=== PATIENT | female | born 1990 | race Caucasian/White ===

== ENCOUNTER 2019-04-01 01:18 | Inpatient (IN) | payer BC ==
[~2019-04-01 01:18] MED LIST: Bupivacaine 0.25% 10 ML SDV ONE
[2019-04-01] MEDS ORDERED: Nalbuphine 10 MG/1 ML Vial IVPUSH PRN (01:30)
[2019-04-01] MEDS ORDERED: Sodium Chloride 0.9% 10 ML Syringe FLUSH PRN (01:30)
[2019-04-01] MEDS ORDERED: Oxytocin/Lactated Ringers 10 UNIT/1,000 ML BAG IV SCH ×2 (01:30→17:30)
[2019-04-01] MEDS: Lactated Ringers 1,000 ML IV SCH ×2 (08:54→11:07)
[2019-04-01] MEDS ORDERED: fentaNYL 100 MCG/2 ML SDV EPIDUR PRN (09:16)
[2019-04-01] MEDS ORDERED: diphenhydrAMINE 50 MG/ML SDV IVPUSH PRN (09:16)
[2019-04-01] MEDS ORDERED: fentaNYL/Bupivacaine/NS 2 MCG-0.125% 250 ML EPIDUR PRN (09:16)
[2019-04-01] MEDS ORDERED: ePHEDrine 50 MG/ML SDV IVPUSH PRN (09:16)
--- NOTE | 2019-04-01 09:29 | PCM.PREANE ---
Preanesthetic Assessment - Anesthesia/Transfusion/Family Hx Anesthesia History: Prior Anesthesia Without Reaction Family History of Anesthesia Reaction: Other (see below) (Mom has a hard time waking up from general anesthesia.) Transfusion History: No Prior Transfusion(s) - Review of Systems General: No Symptoms Pulmonary: No Symptoms Cardiovascular: No Symptoms Gastrointestinal: No Symptoms Neurological: No Symptoms Other: Reports: None - Physical Assessment Vital Signs: 99.4F 127/75 82 16 98% Height: 1.63 m Weight: 69.088 kg ASA Class: 2 Mental Status: Alert & Oriented x3 Airway Class: Mallampati = 1 Dentition: Reports: Normal Dentition Thyro-Mental Finger Breadths: 3 Mouth Opening Finger Breadths: 3 ROM/Head Extension: Full Lungs: Clear to Auscultation, Normal Respiratory Effort Cardiovascular: Regular Rate, Regular Rhythm - Lab Values: Laboratory Last Values WBC 9.84 K/mm3 (3.98-10.04) 04/01/19 01:40 RBC 3.79 M/mm3 (3.98-5.22) L 04/01/19 01:40 Hgb 13.5 gm/dl (11.2-15.7) 04/01/19 01:40 Hct 37.5 % (34.1-44.9) 04/01/19 01:40 MCV 98.9 fl (79.4-94.8) H 04/01/19 01:40 MCH 35.6 pg (25.6-32.2) H 04/01/19 01:40 MCHC 36.0 g/dl (32.2-35.5) H 04/01/19 01:40 RDW Std Deviation 43.5 fL (36.4-46.3) 04/01/19 01:40 Plt Count 204 K/mm3 (182-369) 04/01/19 01:40 MPV 10.6 fl (9.4-12.3) 04/01/19 01:40 Neut % (Auto) 71.3 % (34.0-71.1) H 04/01/19 01:40 Lymph % (Auto) 20.2 % (19.3-51.7) 04/01/19 01:40 [place] % (Auto) 7.0 % (4.7-12.5) 04/01/19 01:40 Eos % (Auto) 0.9 (0.7-5.8) 04/01/19 01:40 Baso % (Auto) 0.3 % (0.1-1.2) 04/01/19 01:40 Neut # (Auto) 7.01 K/mm3 (1.56-6.13) H 04/01/19 01:40 Lymph # (Auto) 1.99 K/mm3 (1.18-3.74) 04/01/19 01:40 [place] # (Auto) 0.69 K/mm3 (0.24-0.36) H 04/01/19 01:40 Eos # (Auto) 0.09 K/mm3 (0.04-0.36) 04/01/19 01:40 Baso # (Auto) 0.03 K/mm3 (0.01-0.08) 04/01/19 01:40 Blood Type A POSITIVE 04/01/19 01:40 Gel Antibody Screen Negative 04/01/19 01:40 - Allergies Allergies/Adverse Reactions: Allergies Allergy/AdvReac Type Severity Reaction Status Date / Time nystatin Allergy Other Verified 04/01/19 01:29 - Acknowledgements Anesthesia Type Planned: Epidural Pt an Appropriate Candidate for the Planned Anesthesia: Yes Alternatives and Risks of Anesthesia Discussed w Pt/Guardian: Yes Pt/Guardian Understands and Agrees with Anesthesia Plan: Yes 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: - SUBSTANCE USE Smoking Status *Q: Never Smoker Second Hand Smoke Exposure: No Recreational Drug Use History: No - HOME MEDS Home Medications: Home Meds Pnv No.95/Ferrous Fum/Folic AC [ Caplet] 1 tab PO DAILY 04/01/19 [ History] - CURRENT (IN HOUSE) MEDS Current Meds: Current Medications Diphenhydramine HCl (Benadryl) 25 mg IVPUSH Q6H PRN PRN Reason: pruritis Ephedrine Sulfate (Ephedrine Sulfate) 5 mg IVPUSH ASDIRECTED PRN PRN Reason: Hypotension Fentanyl (Sublimaze) 100 mcg EPIDUR Q3H PRN PRN Reason: Pain Fentanyl/Bupivacaine HCl (Fentanyl/Bupivacaine/Ns 2 Mcg-0.125% 250 Ml) 250 ml EPIDUR CONTINUOUS PRN PRN Reason: Pain Lactated Ringer's (Ringers, Lactated) 1,000 mls @ 100 mls/hr IV ASDIRECTED RAMON Last Admin: 04/01/19 08:54 Dose: 100 mls/hr Oxytocin/Lactated Ringer's (Pitocin In Lr 10 Units/1,000 Ml) 10 unit in 1,000 mls @ 500 mls/hr IV .CONTINUOUS RAMON Nalbuphine HCl (Nubain) 10 mg IVPUSH Q2H PRN PRN Reason: Pain Sodium Chloride (Saline Flush) 10 ml FLUSH ASDIRECTED PRN PRN Reason: Keep Vein Open
--- NOTE | 2019-04-01 14:02 | PCM.LDHP ---
L&D History of Present Illness - General Date of Service: 04/01/19 Admit Problem/Dx: Patient Status Order with Admit Dx/Problem 04/01/19 01:30 Patient Status [ADT] Routine Admission Diagnosis/Problem Admission Diagnosis/Problem 04/01/19 13:59 Mary is a 28-year-old 1 para 0000 white female presently at 40-0/7 weeks gestational age with an DAVID of 04/01/2019 who is admitted to labor and delivery in active labor with cervical dilation of 4 cm. Source of Information: Patient History Limitations: Reports: No Limitations - History of Present Illness Introduction:: Mary is a 28-year-old 1 para 0000 white female presently at 40-0/7 weeks gestational age with an DAVID of 04/01/2019 who is admitted to labor and delivery in the latent phase of labor with cervical dilation of 2 cm. Rupture of membranes occurred at 2345 on 03/31/2019. Fluid was clear. Upon admission, she was 2 cm dilated with 80% effacement. Her contractions are regular. 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 Onset of menarche at age 14 with monthly, regular cycles every 28 days. Last menstrual period was fairly certain on 06/25/2018. control use at time of conception was unknown. Her DAVID of 04/01/2019 is set by her LMP. This was supported by an ultrasound on 2018 that placed her DAVID at 03/29/2019. No previous pregnancies. ASCUS in 2017 and 2018, but no positive HPV testing. course: was followed by Dr. Muhammad starting on 01/09/2019 at 28-2/7 weeks gestational age. Prior to this, patient was seen by a family practice provider in [place]. She was unable to find an ANIMAL NURSERY WORKER office with an opening, so she transferred care to [place] where her parents reside. Her weight gain during this increased from 130.0 pounds to 160.6 pounds, an 30-pound weight gain. Fundal height growth has been normal. Group B strep negative on 03/04/2019. Patient desires an epidural in labor and delivery. Genetic screening completed on 01/09/2019 and came back negative. Patient plans on . She received her influenza vaccination on 03/19/2019 and Tdap on 01/09/2019. Laboratory testing: Blood type A+ with negative antibody screen. First hemoglobin is 14.5 g/dL and platelets are 234,000. She is rubella immune. RPR is nonreactive. Group B strep was negative on 03/04/2019. Hepatitis B surface antigen and HIB assays are both negative as were her chlamydia and gonorrhea tests. Second trimester labs showed a hemoglobin of 13.4 g/dL and platelets of 231,000. One-hour GTT was 144. Three hour GTT was normal with fasting blood sugar of 95, 1 hour glucose of 135, 2 hour glucose of 113, and 3 hour glucose of 89. Allergies: 1. Nystatin Medications: 1. /Iron oral tablet once daily Past medical history: none Past surgical history: 1. [place] teeth extraction Family history: Patient's mother is alive an well. She reports "trouble coming out of anesthesia." Patient's father is alive and well. Maternal grandmother is alive. She has hypothyroidism, osteoporosis, and type 2 diabetes. Maternal grandfather is secondary to colon cancer diagnosed older than 50 years of age. Paternal grandmother is alive. She was diagnosed with bone/breast/lung cancer at age 85. Paternal grandfather is secondary to lung cancer at age 70. Down syndrome present in cousin of MOB and aunt of FOB. No history of bleeding or blood clotting disorders or -related issues. Social history: Patient is . She works from home. is Robin. She does not use any significant amounts of alcohol, drugs, or tobacco. She and her recently moved to [place], [place]. 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: Reports: Social & Family History - Tobacco Use Smoking Status *Q: Never Smoker Second Hand Smoke Exposure: No - Recreational Drug Use Recreational Drug Use: No H&P Review of Systems - Review of Systems: Review Of Systems: See Below General: Reports: No Symptoms HEENT: Reports: No Symptoms Pulmonary: Reports: No Symptoms Cardiovascular: Reports: No Symptoms Gastrointestinal: Reports: No Symptoms Genitourinary: Reports: No Symptoms Musculoskeletal: Reports: No Symptoms Skin: Reports: No Symptoms Psychiatric: Reports: No Symptoms Neurological: Reports: No Symptoms Hematologic/Lymphatic: Reports: No Symptoms Immunologic: Reports: No Symptoms L&D Exam - Exam Exam: See Below - Vital Signs Weight: 152 lb 5 oz - Exam General: Alert, Oriented HEENT: Conjunctiva Clear, Mucosa Moist & [place] Neck: Supple, Trachea Midline Lungs: Clear to Auscultation, Normal Respiratory Effort Cardiovascular: Regular Rate, Regular Rhythm GI/Abdominal Exam: Normal Bowel Sounds Genitourinary: Normal external exam, Normal bimanual exam Extremities: Normal Inspection, Normal Range of Motion, No Pedal Edema, Normal Capillary Refill Skin: Warm, Intact - Patient Data Lab Results Last 24 hrs: Laboratory Results - last 24 hr 04/01/19 04/01/19 Range/Units 01:40 01:40 WBC 9.84 (3.98-10.04) K/mm3 RBC 3.79 L (3.98-5.22) M/mm3 Hgb 13.5 (11.2-15.7) gm/dl Hct 37.5 (34.1-44.9) % MCV 98.9 H (79.4-94.8) fl MCH 35.6 H (25.6-32.2) pg MCHC 36.0 H (32.2-35.5) g/dl RDW Std Deviation 43.5 (36.4-46.3) fL Plt Count 204 (182-369) K/mm3 MPV 10.6 (9.4-12.3) fl Neut % (Auto) 71.3 H (34.0-71.1) % Lymph % (Auto) 20.2 (19.3-51.7) % [place] % (Auto) 7.0 (4.7-12.5) % Eos % (Auto) 0.9 (0.7-5.8) Baso % (Auto) 0.3 (0.1-1.2) % Neut # (Auto) 7.01 H (1.56-6.13) K/mm3 Lymph # (Auto) 1.99 (1.18-3.74) K/mm3 [place] # (Auto) 0.69 H (0.24-0.36) K/mm3 Eos # (Auto) 0.09 (0.04-0.36) K/mm3 Baso # (Auto) 0.03 (0.01-0.08) K/mm3 Blood Type A POSITIVE Gel Antibody Screen Negative Result Diagrams: 04/01/19 01:40 Problem List Initiated/Reviewed/Updated: Yes Orders Last 24hrs: Active Orders 24 hr Category Date Time Status Patient Status [ADT] Routine ADT 04/01/19 01:30 Active Activity as Tolerated [RC] PFP Care 04/01/19 01:30 Active Communication Order [RC] ASDIRECTED Care 04/01/19 01:30 Active Heart Tones [RC] ASDIRECTED Care 04/01/19 01:30 Active Notify Provider [RC] ASDIRECTED Care 04/01/19 09:16 Active Notify Provider [RC] PFP Care 04/01/19 01:30 Active Notify Provider [RC] PRN Care 04/01/19 01:30 Active Peripheral IV Care [RC] . DIRECTED Care 04/01/19 01:30 Active Vital Signs [RC] PER UNIT ROUTINE Care 04/01/19 01:30 Active Regular Diet [DIET] Diet 04/01/19 Breakfast Active RAPID PLASMA REAGIN,RPR [CHEM] Routine Lab 04/01/19 01:40 Received Bupivicaine/fentaNYL/NS [fentaNYL/Bupivacaine/NS 2 MCG- Med 04/01/19 09:16 Active 0.125% 250 ML] 250 ml EPIDUR CONTINUOUS PRN Lactated Ringers [Ringers, Lactated] 1,000 ml Med 04/01/19 01:30 Active IV ASDIRECTED Nalbuphine [Nubain] Med 04/01/19 01:30 Active 10 mg IVPUSH Q2H PRN Oxytocin/Lactated Ringers [Pitocin in LR 10 Units/1,000 Med 04/01/19 01:30 Active ML] 10 unit in 1,000 ml IV .CONTINUOUS Sodium Chloride 0.9% [Saline Flush] Med 04/01/19 01:30 Active 10 ml FLUSH ASDIRECTED PRN diphenhydrAMINE [Benadryl] Med 04/01/19 09:16 Active 25 mg IVPUSH Q6H PRN ePHEDrine [ePHEDrine sulfate] Med 04/01/19 09:16 Active 5 mg IVPUSH ASDIRECTED PRN fentaNYL [Sublimaze] Med 04/01/19 09:16 Active 100 mcg EPIDUR Q3H PRN Electronic Heart Tones Ext w TOCO [WOMSER] Oth 04/01/19 01:30 Ordered Routine Electronic Heart Tones Internal [WOMSER] Per Unit Oth 04/01/19 01:30 Ordered Routine Peripheral IV Insertion Adult [OM.PC] Routine Oth 04/01/19 01:30 Ordered Resuscitation Status Routine Resus Stat 04/01/19 01:30 Ordered Medication Orders Diphenhydramine HCl (Benadryl) 25 mg IVPUSH Q6H PRN PRN Reason: pruritis Ephedrine Sulfate (Ephedrine Sulfate) 5 mg IVPUSH ASDIRECTED PRN PRN Reason: Hypotension Fentanyl (Sublimaze) 100 mcg EPIDUR Q3H PRN PRN Reason: Pain Last Admin: 04/01/19 10:53 Dose: 100 mcg Fentanyl/Bupivacaine HCl (Fentanyl/Bupivacaine/Ns 2 Mcg-0.125% 250 Ml) 250 ml EPIDUR CONTINUOUS PRN PRN Reason: Pain Last Admin: 04/01/19 10:53 Dose: 250 ml Lactated Ringer's (Ringers, Lactated) 1,000 mls @ 100 mls/hr IV ASDIRECTED RAMON Last Admin: 04/01/19 11:07 Dose: 100 mls/hr Infusion: 04/01/19 11:07 Dose: 100 mls/hr Admin: 04/01/19 08:54 Dose: 100 mls/hr Oxytocin/Lactated Ringer's (Pitocin In Lr 10 Units/1,000 Ml) 10 unit in 1,000 mls @ 500 mls/hr IV .CONTINUOUS RAMON Nalbuphine HCl (Nubain) 10 mg IVPUSH Q2H PRN PRN Reason: Pain Sodium Chloride (Saline Flush) 10 ml FLUSH ASDIRECTED PRN PRN Reason: Keep Vein Open Assessment/Plan Comment:: Assessment: 1. 40-0/7 week intrauterine , active labor 2. Group B strep positive status 3. Patient desires epidural in labor and delivery. 4. Patient is up-to-date regarding her Tdap, influenza vaccination, and MMR. 5. Patient plans to breastfeed. Plan: 1. anticipate normal spontaneous vaginal delivery. 2. Patient has been administered a spinal epidural for labor analgesia. 3. Platelet count and RPR per protocol. 4. Support patient's decision to nurse.
[2019-04-01] MEDS: Lidocaine 1% 50 ML MDV ONE ×2 (19:05→23:54)
--- NOTE | 2019-04-01 19:37 | PCM.SN ---
- Free Text/Narrative Note: Mary is a 28-year-old 1 now para 1001 white female who was admitted last evening with spontaneous rupture membranes. Her DAVID is 04/01/2019 place her at 40-0/7 weeks gestational age. Clear amniotic fluid. She progressed in labor to complete cervical dilation by approximately 1630 hrs. on 04/01/2019. She had an epidural placed for labor analgesia. She pushed for approximately 2-1 /2 hours at which time she is becoming somewhat fatigued. She is offered vacuum extraction assistance which she accepted. The procedure, risks, benefits were discussed with her. She appeared to understand and gave verbal consent. Back extraction was performed. Over the course of 2 contractions patient delivered a viable, galeana, female with Apgars of 7 and 8, a length of 21.0 inches and a weight of 3620 g (7 pounds 15.7 ounces). A midline episiotomy to facilitate delivery. It was a slight extension into partial third- degree laceration. She delivered in an occiput anterior position. During the course of the vacuum extraction there was 1 pop off which occurred as the baby' s head was coming out. Nose and mouth were bulb suctioned and 3 was placed on mom's abdomen. Cord was allowed to pulsate for approximately 1 minute and then was clamped 2 and cut by the baby's father. There were 3 vessels in the umbilical cord. Cord blood was obtained. Patient was given Pitocin 500 mL/hour in the IV to facilitate increase in uterine tone and decreased likelihood of bleeding. The partial third degree and second-degree episiotomy/laceration were repaired in routine fashion without problems. Patient heart as well. Lidocaine 1%10 mL were used to anesthetize the area adequately. Placenta delivered in a Maria visitation, appeared intact and complete and was discarded per patient desire. Estimated blood loss was 300 mL. Patient plans to breast-feed. Condition: Good
[2019-04-01] MEDS: Ibuprofen 600 MG Tab PO PRN (21:30)
[2019-04-01] MEDS ORDERED: Acetaminophen 325 MG Tab PO PRN (23:55)
[2019-04-01] MEDS ORDERED: Docusate Sodium 100 MG Cap PO PRN (23:55)
[2019-04-01] MEDS ORDERED: Benzocaine/Menthol 20%-0.5% Spray 56 GM Canister TOP PRN (23:55)
[2019-04-01] MEDS ORDERED: Witch Hazel Medicated Pads 40/Jar TOP PRN (23:55)
[2019-04-02] MEDS: Ibuprofen 600 MG Tab PO PRN (04:49)
--- NOTE | 2019-04-02 08:35 | PCM.PN ---
<Merced Mcgraw R - Last Filed: 04/02/19 09:04> - General Info Date of Service: 04/02/19 Admission Dx/Problem (Free Text): Post- care Functional Status: Reports: Pain Controlled, Tolerating Diet, Urinating - Review of Systems General: Reports: No Symptoms HEENT: Reports: No Symptoms Pulmonary: Reports: No Symptoms Cardiovascular: Reports: No Symptoms Gastrointestinal: Reports: [place]. Denies: Abdominal Pain, Nausea, Vomiting Genitourinary: Reports: No Symptoms Musculoskeletal: Reports: Back Pain (mild). Denies: Leg Pain Skin: Reports: No Symptoms Neurological: Reports: No Symptoms Psychiatric: Reports: No Symptoms - Patient Data Vitals - Most Recent: Last Vital Signs Temp 98.1 F 04/02/19 04:30 Pulse Resp BP Pulse Ox Weight - Most Recent: 69.088 kg I&O - Last 24 Hours: Intake & Output 04/01/19 04/02/19 04/02/19 22:59 06:59 14:59 Intake Total 1000 Balance 1000 Lab Results Last 24 Hours: Laboratory Results - last 24 hr 04/01/19 Range/Units 01:40 RPR Non-reactive (NONREACTIVE) Med Orders - Current: Current Medications Acetaminophen (Tylenol) 650 mg PO Q4H PRN PRN Reason: mild pain or fever Benzocaine/Menthol (Dermoplast Pain Relief [place]) 0 gm TOP ASDIRECTED PRN PRN Reason: Perineal Comfort Measure Last Admin: 04/02/19 00:01 Dose: 1 canister Docusate Sodium (Colace) 100 mg PO BID PRN PRN Reason: Constipation Last Admin: 04/02/19 04:49 Dose: 100 mg Ibuprofen (Motrin) 600 mg PO Q4H PRN PRN Reason: Mild pain or fever Last Admin: 04/02/19 04:49 Dose: 600 mg Prenat Multivit/Technical Support Analyst/Iron/Folic Ac ( Plus Iron) 1 each PO DAILY RAMON Amat[place] ([place]) 1 pad TOP ASDIRECTED PRN PRN Reason: Pain Last Admin: 04/02/19 00:01 Dose: 1 container Discontinued Medications Diphenhydramine HCl (Benadryl) 25 mg IVPUSH Q6H PRN PRN Reason: pruritis Ephedrine Sulfate (Ephedrine Sulfate) 5 mg IVPUSH ASDIRECTED PRN PRN Reason: Hypotension Fentanyl (Sublimaze) 100 mcg EPIDUR Q3H PRN PRN Reason: Pain Last Admin: 04/01/19 10:53 Dose: 100 mcg Fentanyl/Bupivacaine HCl (Fentanyl/Bupivacaine/Ns 2 Mcg-0.125% 250 Ml) 250 ml EPIDUR CONTINUOUS PRN PRN Reason: Pain Last Admin: 04/01/19 10:53 Dose: 250 ml Lactated Ringer's (Ringers, Lactated) 1,000 mls @ 100 mls/hr IV ASDIRECTED RAMON Last Admin: 04/01/19 11:07 Dose: 100 mls/hr Oxytocin/Lactated Ringer's (Pitocin In Lr 10 Units/1,000 Ml) 10 unit in 1,000 mls @ 500 mls/hr IV .CONTINUOUS RAMON Oxytocin/Lactated Ringer's (Pitocin In Lr 10 Units/1,000 Ml) 10 unit in 1,000 mls @ 12 mls/hr IV TITRATE RAMON; Protocol Last Titration: 04/01/19 17:55 Dose: 3 munits/min, 18 mls/hr Lidocaine HCl (Xylocaine 1%) Confirm Administered Dose 50 ml .ROUTE .[facility]-MED ONE Stop: 04/01/19 18:47 Last Admin: 04/01/19 23:54 Dose: 50 ml Nalbuphine HCl (Nubain) 10 mg IVPUSH Q2H PRN PRN Reason: Pain Sodium Chloride (Saline Flush) 10 ml FLUSH ASDIRECTED PRN PRN Reason: Keep Vein Open - Exam Quality Assessment: No: Urine Catheter, Skin Breakdown General: Alert, Oriented HEENT: EOMI, Mucous Membr. Moist/[place]. No: Scleral Icterus Neck: Supple, Trachea Midline. No: Lymphadenopathy Lungs: Clear to Auscultation, Normal Respiratory Effort Cardiovascular: Regular Rate, Regular Rhythm, No Murmurs GI/Abdominal Exam: Normal Bowel Sounds, Soft, Non-Tender, Other (No bowel movement yet) (Female) Exam: Vaginal Bleeding (some blood clots passed last night, but transitioning from bright red to dark brown), Vaginal Discharge (normal lochia) . No: Uterine Tenderness Back Exam: Normal Inspection Extremities: Normal Inspection, No Pedal Edema, Normal Capillary Refill Peripheral Pulses: 2+: Radial (L), Radial (R), Posterior Tibial (L), Posterior Tibial (R) Skin: Warm, Dry, Intact Wound/Incisions: Healing Well Neurological: No New Focal Deficit Psy/Mental Status: Alert, Normal Affect, Normal Mood - Problem List Review Problem List Initiated/Reviewed/Updated: Yes - Plan Plan:: Assessment: 1. Vacuum-assisted vaginal delivery with episiotomy. 2nd degree and partial 3rd degree laceration repaired. 2. Post- day #1 3. Patient is with no concerns. 4. Reports that pain is adequately controlled. 5. Vaginal bleeding and discharge is normal. 6. Patient has been up and walking around. Voiding with no problems. No bowel movement yet. Plan: 1. Support patient's decision to nurse. 2. Tylenol as needed for pain. 3. Continue to monitor vaginal bleeding and discharge. 4. Stool softener available if needed to promote a bowel movement. <Fer Muhammad - Last Filed: 04/03/19 22:39> - Patient Data Vitals - Most Recent: Last Vital Signs Temp 36.8 C 04/02/19 16:42 Pulse 82 04/03/19 08:32 Resp 14 04/03/19 08:32 BP 120/79 04/03/19 08:32 Pulse Ox 99 04/03/19 08:32 I&O - Last 24 Hours: Intake & Output 04/03/19 04/03/19 04/03/19 06:59 14:59 22:59 Intake Total 75 Balance 75 Med Orders - Current: Current Medications Discontinued Medications Acetaminophen (Tylenol) 650 mg PO Q4H PRN PRN Reason: mild pain or fever Benzocaine/Menthol (Dermoplast Pain Relief [place]) 0 gm TOP ASDIRECTED PRN PRN Reason: Perineal Comfort Measure Last Admin: 04/02/19 00:01 Dose: 1 canister Bupivacaine HCl (Sensorcaine-Mpf 0.25%) 10 ml .ROUTE .STK-MED ONE Stop: 04/01/19 00:01 Diphenhydramine HCl (Benadryl) 25 mg IVPUSH Q6H PRN PRN Reason: pruritis Docusate Sodium (Colace) 100 mg PO BID PRN PRN Reason: Constipation Last Admin: 04/02/19 04:49 Dose: 100 mg Ephedrine Sulfate (Ephedrine Sulfate) 5 mg IVPUSH ASDIRECTED PRN PRN Reason: Hypotension Fentanyl (Sublimaze) 100 mcg EPIDUR Q3H PRN PRN Reason: Pain Last Admin: 04/01/19 10:53 Dose: 100 mcg Fentanyl/Bupivacaine HCl (Fentanyl/Bupivacaine/Ns 2 Mcg-0.125% 250 Ml) 250 ml EPIDUR CONTINUOUS PRN PRN Reason: Pain Last Admin: 04/01/19 10:53 Dose: 250 ml Lactated Ringer's (Ringers, Lactated) 1,000 mls @ 100 mls/hr IV ASDIRECTED RAMON Last Admin: 04/01/19 11:07 Dose: 100 mls/hr Oxytocin/Lactated Ringer's (Pitocin In Lr 10 Units/1,000 Ml) 10 unit in 1,000 mls @ 500 mls/hr IV .CONTINUOUS RAMON Oxytocin/Lactated Ringer's (Pitocin In Lr 10 Units/1,000 Ml) 10 unit in 1,000 mls @ 12 mls/hr IV TITRATE RAMON; Protocol Last Titration: 04/01/19 17:55 Dose: 3 munits/min, 18 mls/hr Ibuprofen (Motrin) 600 mg PO Q4H PRN PRN Reason: Mild pain or fever Last Admin: 04/02/19 04:49 Dose: 600 mg Lidocaine HCl (Xylocaine 1%) Confirm Administered Dose 50 ml .ROUTE .STK-MED ONE Stop: 04/01/19 18:47 Last Admin: 04/01/19 23:54 Dose: 50 ml Nalbuphine HCl (Nubain) 10 mg IVPUSH Q2H PRN PRN Reason: Pain Prenat Multivit/[place]/Iron/Folic Ac ( Plus Iron) 1 each PO DAILY RAMON Last Admin: 04/02/19 08:46 Dose: 1 each Sodium Chloride (Saline Flush) 10 ml FLUSH ASDIRECTED PRN PRN Reason: Keep Vein Open [place] (Tucks) 1 pad TOP ASDIRECTED PRN PRN Reason: Pain Last Admin: 04/02/19 00:01 Dose: 1 container - My Orders Last 24 Hours: My Active Orders 04/02/19 23:55 Heat Therapy [OM.PC] PRN 04/03/19 04:52 Ready for Discharge [RC] PER UNIT ROUTINE - Plan Plan:: I have read the student's H and P and agree with its content.
[2019-04-02] MEDS ORDERED: Prenatal Multivitamin with Calcium/Folic Acid/Iron Tab PO SCH (09:00)
--- NOTE | 2019-04-02 11:19 | PCM48HPAN ---
Post Anesthesia Note - EVALUATION WITHIN 48HRS OF ANESTHETIC Vital Signs in Normal Range: Yes Patient Participated in Evaluation: Yes Respiratory Function Stable: Yes Airway Patent: Yes Cardiovascular Function Stable: Yes Hydration Status Stable: Yes Pain Control Satisfactory: Yes Nausea and Vomiting Control Satisfactory: Yes Mental Status Recovered: Yes Vital Signs: Last Vital Signs Temp 36.7 C 04/02/19 08:28 Pulse 82 04/02/19 08:28 Resp 16 04/02/19 08:28 BP 123/83 04/02/19 08:28 Pulse Ox 98 04/02/19 08:28
--- NOTE | 2019-04-03 04:52 | PCM.DCSUM1 ---
Discharge Summary - Hospital Course Free Text/Narrative:: Mary is a 28-year-old 1 now para 1001 white female who was admitted last evening with spontaneous rupture membranes. Her DAVID is 04/01/[address] her at 40-0/7 weeks gestational age. Clear amniotic fluid. She progressed in labor to complete cervical dilation by approximately 1630 hrs. on 04/01/2019. She had an epidural placed for labor analgesia. She pushed for approximately 2-1 /2 hours at which time she is becoming somewhat fatigued. She is offered vacuum extraction assistance which she accepted. The procedure, risks, benefits were discussed with her. She appeared to understand and gave verbal consent. Back extraction was performed. Over the course of 2 contractions patient delivered a viable, galeana, female with Apgars of 7 and 8, a length of 21.0 inches and a weight of 3620 g (7 pounds 15.7 ounces). A midline episiotomy to facilitate delivery. It was a slight extension into partial third- degree laceration. She delivered in an occiput anterior position. During the course of the vacuum extraction there was 1 pop off which occurred as the baby' s head was coming out. Nose and mouth were bulb suctioned and 3 was placed on mom's abdomen. Cord was allowed to pulsate for approximately 1 minute and then was clamped 2 and cut by the baby's father. There were 3 vessels in the umbilical cord. Cord blood was obtained. Patient was given Pitocin 500 mL/hour in the IV to facilitate increase in uterine tone and decreased likelihood of bleeding. The partial third degree and second-degree episiotomy/laceration were repaired in routine fashion without problems. Patient heart as well. Lidocaine 1%10 mL were used to anesthetize the area adequately. Placenta delivered in a Maria visitation, appeared intact and complete and was discarded per patient desire. Estimated blood loss was 300 mL. Patient plans to breast-feed. patient has done very well. She is nursing without problems, has minimal lochia, is voiding well and having no significant discomfort. She is desiring discharge home today. Condition: Good Diagnosis: Stroke: No - Discharge Data Discharge Date: 04/03/19 Discharge Disposition: Home, Self-Care 01 Condition: Good - Referral to Home Health Primary Care Physician: Fer F Arnold, MD - Patient Instructions Diet: Regular Diet as Tolerated (Nursing diet and increase calories and calcium as recommended) Activity: As Tolerated (No intercourse or tampons until bleeding resolves) Driving: May Drive Today Showering/Bathing: May Shower (May take a bath) Notify Provider of: Fever, Increased Pain, Swelling and Redness, Nausea and/or Vomiting - Discharge Plan Home Medications: Home Meds Pnv No.95/Ferrous Fum/Folic AC [ Caplet] 1 tab PO DAILY 04/01/19 [ History] Acetaminophen [Tylenol] 650 mg PO Q4H PRN tablet 04/03/19 [Rx] Ibuprofen [Motrin] 600 mg PO Q4H PRN tablet 04/03/19 [Rx] Referrals: Fer Muhammad MD [Primary Care Provider] - (Return to clinic[facility]. Muhammad[facility]-4 weeks.) - Discharge Summary/Plan Comment DC Time >30 min.: No Discharge Summary/Plan Comment: Discharge instructions: 1. Discharge home 2. Diet, activity and follow-up discussed with patient. Recommend nursing diet with increased calories and calcium. 3. Precautions given concern increased pain, bleeding, temperature, signs/ symptoms of DVT/PE. 4. Medications per home medication was printed, discussed with and given to the patient. 5. Return to clinic-Dr. Muhammad[facility] in 2 weeks. Diagnosis: Term -delivered Condition: Good - Patient Data Vitals - Most Recent: Last Vital Signs Temp 36.8 C 04/02/19 16:42 Pulse 95 04/02/19 20:21 Resp 14 04/02/19 20:21 BP 117/68 04/02/19 20:21 Pulse Ox 98 04/02/19 20:21 Weight - Most Recent: 69.088 kg I&O - Last 24 hours: Intake & Output 04/02/19 04/02/19 04/03/19 14:59 22:59 06:59 Intake Total 0 0 Balance 0 0 Med Orders - Current: Current Medications Acetaminophen (Tylenol) 650 mg PO Q4H PRN PRN Reason: mild pain or fever Benzocaine/Menthol (Dermoplast Pain Relief Cocoa) 0 gm TOP ASDIRECTED PRN PRN Reason: Perineal Comfort Measure Last Admin: 04/02/19 00:01 Dose: 1 canister Docusate Sodium (Colace) 100 mg PO BID PRN PRN Reason: Constipation Last Admin: 04/02/19 04:49 Dose: 100 mg Ibuprofen (Motrin) 600 mg PO Q4H PRN PRN Reason: Mild pain or fever Last Admin: 04/02/19 04:49 Dose: 600 mg Prenat Multivit/Muncy/Iron/Folic Ac ( Plus Iron) 1 each PO DAILY RAMON Last Admin: 04/02/19 08:46 Dose: 1 each Witch Lima (Tucks) 1 pad TOP ASDIRECTED PRN PRN Reason: Pain Last Admin: 04/02/19 00:01 Dose: 1 container Discontinued Medications Bupivacaine HCl (Sensorcaine-Mpf 0.25%) 10 ml .ROUTE .Synthorx ONE Stop: 04/01/19 00:01 Diphenhydramine HCl (Benadryl) 25 mg IVPUSH Q6H PRN PRN Reason: pruritis Ephedrine Sulfate (Ephedrine Sulfate) 5 mg IVPUSH ASDIRECTED PRN PRN Reason: Hypotension Fentanyl (Sublimaze) 100 mcg EPIDUR Q3H PRN PRN Reason: Pain Last Admin: 04/01/19 10:53 Dose: 100 mcg Fentanyl/Bupivacaine HCl (Fentanyl/Bupivacaine/Ns 2 Mcg-0.125% 250 Ml) 250 ml EPIDUR CONTINUOUS PRN PRN Reason: Pain Last Admin: 04/01/19 10:53 Dose: 250 ml Lactated Ringer's (Ringers, Lactated) 1,000 mls @ 100 mls/hr IV ASDIRECTED RAMON Last Admin: 04/01/19 11:07 Dose: 100 mls/hr Oxytocin/Lactated Ringer's (Pitocin In Lr 10 Units/1,000 Ml) 10 unit in 1,000 mls @ 500 mls/hr IV .CONTINUOUS RAMON Oxytocin/Lactated Ringer's (Pitocin In Lr 10 Units/1,000 Ml) 10 unit in 1,000 mls @ 12 mls/hr IV TITRATE RAMON; Protocol Last Titration: 04/01/19 17:55 Dose: 3 munits/min, 18 mls/hr Lidocaine HCl (Xylocaine 1%) Confirm Administered Dose 50 ml .ROUTE .Synthorx ONE Stop: 04/01/19 18:47 Last Admin: 04/01/19 23:54 Dose: 50 ml Nalbuphine HCl (Nubain) 10 mg IVPUSH Q2H PRN PRN Reason: Pain Sodium Chloride (Saline Flush) 10 ml FLUSH ASDIRECTED PRN PRN Reason: Keep Vein Open
== END 2019-04-03 10:40 | disposition home or self-care (01) | DRG 542 ==
LOC: JD.OBCHECK 01:18 → JD.OB 01:18 → JD.OBCHECK 01:29 → JD.OB 01:30 → OBSVTOIN 18:54 → JD.OB 18:54
PROVIDERS: ADMIT Obstetrics & Gynecology; ATTEND Obstetrics & Gynecology
PROC: 10D07Z6 Extraction of Products of Conception, Vacuum, Via Natural or Artificial Opening (ICD-10-PCS; principal; 2019-04-01)
PROC: 0W8NXZZ Division of Female Perineum, External Approach (ICD-10-PCS; 2019-04-01)
PROC: 0DQR0ZZ Repair Anal Sphincter, Open Approach (ICD-10-PCS; 2019-04-01)
PROC: 3E0R3BZ Introduction of Anesthetic Agent into Spinal Canal, Percutaneous Approach (ICD-10-PCS; 2019-04-01)
DX: O48.0 Post-term pregnancy (principal); O99.824 Streptococcus B carrier state complicating childbirth; O70.20 Third degree perineal laceration during delivery, unspecified; Z37.0 Single live birth; Z3A.40 40 weeks gestation of pregnancy
CPT/HCPCS: 01967; 36415; 51702; 59025; 59409; 85025; 86592; 86850; 86900; 86901; A9270-GY; J2001; J2590; J3010; J3490; J7120